=== PATIENT | female | born 1950 | race Two or more races ===

== ENCOUNTER 2017-04-21 11:50 | Emergency (ER) | payer MEDICARE ==
[2017-04-21 12:39] LABS: ABSOLUTE BASOPHILS # (AUTO) 0.1 10^3/uL (0.0-0.2); ABSOLUTE EOSINOPHILS # (AUTO) 0.2 10^3/uL (0.0-0.6); ABSOLUTE LYMPHOCYTES (AUTO) 2.2 10^3/uL (0.5-4.7); ABSOLUTE MONOCYTES (AUTO) 0.5 10^3/uL (0.1-1.4); ABSOLUTE NEUT (AUTO) 3.6 10^3/uL (1.7-8.2); BASOPHILS % (AUTO) 0.9 % (0-2); EOSINOPHILS % (AUTO) 2.4 % (0-6); HEMATOCRIT 35.3 % (36.0-47.0); HEMOGLOBIN 11.7 g/dL (12.0-15.5); HGB HCT DIFFERENCE -0.2; LYMPHOCYTES % (AUTO) 34.1 % (13-45); MEAN CORPUSCULAR HEMOGLOBIN 27.8 pg (27.0-33.4); MEAN CORPUSCULAR HGB CONC 33.2 g/dL (32.0-36.0); MEAN CORPUSCULAR VOLUME 84 fl (80-97); MONOCYTES % (AUTO) 7.8 % (3-13); RED BLOOD COUNT 4.22 10^6/uL (3.72-5.28); RED CELL DISTRIBUTION WIDTH 13.9 % (11.5-14.0); SEGMENTED NEUTROPHILS % (AUTO) 54.8 % (42-78); WHITE BLOOD COUNT 6.5 10^3/uL (4.0-10.5)
--- NOTE | 2017-04-21 12:40 | RADIOLOGY REPORT (SQ) ---
EXAM DESCRIPTION: CHEST SINGLE VIEW COMPLETED DATE/TIME: 04/21/2017 12:28 pm REASON FOR STUDY: cp COMPARISON: None. EXAM PARAMETERS: NUMBER OF VIEWS: One view. TECHNIQUE: Single frontal radiographic view of the chest acquired. RADIATION DOSE: NA LIMITATIONS: None. FINDINGS: LUNGS AND PLEURA: No opacities, masses or pneumothorax. No pleural effusion. MEDIASTINUM AND HILAR STRUCTURES: No masses. Contour normal. HEART AND VASCULAR STRUCTURES: Heart normal in size. Normal vasculature. BONES: No acute findings. HARDWARE: None in the chest. OTHER: No other significant finding. IMPRESSION: NO ACUTE RADIOGRAPHIC FINDING IN THE CHEST. TECHNICAL DOCUMENTATION: JOB ID: [id number]
[2017-04-21 12:55] LABS: ALANINE AMINOTRANSFERASE 44 U/L (9-52); ALBUMIN 3.9 g/dL (3.5-5.0); ALKALINE PHOSPHATASE 108 U/L (38-126); ANION GAP 9 (5-19); ASPARTATE AMINO TRANSFERASE 28 U/L (14-36); BILIRUBIN,DIRECT 0.3 mg/dL (0.0-0.4); BILIRUBIN,TOTAL 0.5 mg/dL (0.2-1.3); BLOOD UREA NITROGEN 13 mg/dL (7-20); CALCIUM 10.3 mg/dL (8.4-10.2); CARBON DIOXIDE 27 mmol/L (22-30); CHLORIDE 106 mmol/L (98-107); CREATINE KINASE 109 U/L (30-135); CREATININE RESULT 0.88 mg/dL (0.52-1.25); GLUCOSE 90 mg/dL (75-110); POTASSIUM 4.7 mmol/L (3.6-5.0); TOTAL PROTEIN 6.4 g/dL (6.3-8.2)
[2017-04-21 13:07] LABS: CREATINE KINASE MB 1.36 ng/mL (<4.55)
[2017-04-21 13:08] LABS: TROPONIN I < 0.012 ng/mL
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
[2017-04-21] MEDS ORDERED: LANSOPRAZOLE 30 MG TAB.RAP.DR PO ONE (14:21)
[2017-04-21] MEDS ORDERED: AMLODIPINE BESYLATE 10 MG TABLET PO ONE (14:22)
--- NOTE | 2017-04-21 14:56 | ER Document Report ---
Doctor's Note Notes: 04/21/17 14:54 I was seen in consult with this 66-year-old female with past medical history as recorded who has not taken her medications recently after moving here who has had some intermittent nonradiating substernal discomfort. Patient runs 3 miles daily with no exertional pain. Denies any nausea, vomiting, calf pain or leg swelling, shortness of breath. Labs and x-ray as recorded. Heart scores a 2. We will perform a repeat troponin at the three-hour indigo. We have called and spoken directly in person to Dr. Christensen. He has stated that if the repeat troponin is unremarkable, patient can follow-up in the office after restarting her blood pressure medications on Sunday. Chest x-ray shows normal heart, normal mediastinum, no fractures, normal lung vidales, no pneumothorax.
--- NOTE | 2017-04-21 16:57 | RADIOLOGY REPORT (SQ) ---
EXAM DESCRIPTION: CT HEAD WITHOUT COMPLETED DATE/TIME: 04/21/2017 4:33 pm REASON FOR STUDY: headache COMPARISON: None. TECHNIQUE: Axial images acquired through the brain without intravenous contrast. Images reviewed wi th bone, brain and subdural windows. Images stored on PACS. All CT scanners at this facility use dose modulation, iterative reconstruction, and/or weight based d osing when appropriate to reduce radiation dose to as low as reasonably achievable (ALARA). [facility]: Dose Right [facility]: CareDose [facility]: Dose Right [facility]: Teradose 4D [facility]: Code71 RADIATION DOSE: Up-to-date CT equipment and radiation dose reduction techniques were employed. CTDIv ol: 64.6 mGy. DLP: 1163 mGy-cm. mGy. LIMITATIONS: None. FINDINGS: VENTRICLES: Normal size and contour. CEREBRUM: No masses. No hemorrhage. No midline shift. No evidence for acute infarction. Normal gra y/white matter differentiation. No areas of low density in the white matter. CEREBELLUM: No masses. No hemorrhage. No alteration of density. No evidence for acute infarction. EXTRAAXIAL SPACES: No fluid collections. No masses. ORBITS AND GLOBE: No intra- or extraconal masses. Normal contour of globe without masses. CALVARIUM: No fracture. PARANASAL SINUSES: No fluid or mucosal thickening. SOFT TISSUES: No mass or hematoma. OTHER: No other significant finding. IMPRESSION: NORMAL BRAIN CT WITHOUT CONTRAST. EVIDENCE OF ACUTE STROKE: NO. COMMENT: Quality ID # [id number]: Final reports with documentation of one or more dose reduction techniques (e.g., Automated exposure control, adjustment of the mA and/or kV according to patient size, use of iterative reconstruction technique) TECHNICAL DOCUMENTATION: JOB ID: [id number] [employer]- All Rights Reserved
--- NOTE | 2017-04-21 17:26 | EKG REPORT ---
SEVERITY:- BORDERLINE ECG - SINUS RHYTHM LVH BY VOLTAGE : Confirmed by: Moncho Gallardo MD 21-Apr-2017 17:25:37
[2017-04-21 17:51] VITALS: BP 140/77
== END 2017-04-21 17:58 | disposition home or self-care (01) ==
LOC: ER 11:50
DX: K21.9 Gastro-esophageal reflux disease without esophagitis (principal); T47.1X6A Underdosing of other antacids and anti-gastric-secretion drugs, initial encounter; I10 Essential (primary) hypertension; T46.1X6A Underdosing of calcium-channel blockers, initial encounter; T46.5X6A Underdosing of other antihypertensive drugs, initial encounter; Z91.128 Patient's intentional underdosing of medication regimen for other reason; Z91.14 Patient's other noncompliance with medication regimen; R51 Headache; R07.89 Other chest pain; Z98.84 Bariatric surgery status; H53.8 Other visual disturbances; Z94.7 Corneal transplant status; Z87.891 Personal history of nicotine dependence
CPT/HCPCS: 93005; 99285; 36415; 82553; 82550; 85025; 80053; 84484; 71010; 70450; 93010; A9270 ×2

== ENCOUNTER → 2017-09-25 | Outpatient (CLI) | payer MEDICARE | LOC: WI 08:30 | PROVIDERS: ATTEND Internal Medicine Geriatric Medicine | DX: Z12.31 Encounter for screening mammogram for malignant neoplasm of breast (principal) | CPT/HCPCS: 77063; 77067 ==

== ENCOUNTER → 2018-12-19 | Outpatient (CLI) | payer MEDICARE, OTHER ==
--- NOTE | 2018-12-19 14:21 | DRAGON STRESS TEST REPORT ---
Exercise EKG treadmill stress test. Data procedure: December 19, 2018 Indication: Chest pain. Coronary risk factors: Family history of CAD, hypertension. Significant physical findings prior to stress testing show a blood pressure of 144/88, and a heart rate of 66 beats per minute. Brief exam revealed no contraindication for patient proceeding with treadmill stress test. Resting 12-lead EKG: Sinus rhythm, no acute ST-T wave changes noted. Procedure: The patient was excised on a standard Arnie protocol. The patient walked a total of 7 minutes and 59 seconds on this protocol and reached a peak heart rate of 137 beats per minute, which is 89 percent of maximum predicted heart rate for age. Peak blood pressure noted during the exercise was 145/71. This is at a workload of 10.10 METS. The test was stopped because of dyspnea and fatigue. The patient described no symptoms of chest pain/discomfort. Exercise EKG's show: Significant baseline artifact during the stress test. At the immediate recovery, no significant ST segment changes were noted.. Arrhythmias seen: None noted The heart rate response was adequate. There was abnormal increase in systolic blood pressure noted in recovery but this could be related to technical difficulties in obtaining blood pressure during exercise. Summary of findings and interpretation: 1. No chest pain or chest discomfort symptoms reproduced. 2. No significant EKG evidence of ischemia in the form of ST segment depression especially in immediate recovery EKGs. EKGs during exercise showed significant baseline artifact therefore cannot accurately rule out any ST segment changes during exercise. 3. Abnormal increase in blood pressure in recovery, possibly related to technical reason but cannot rule out underlying CAD. 4. No arrhythmias seen. 5. Good exercise tolerance, good aerobic capacity. 6. Further evaluation may be indicated based on patient's symptoms. May consider stress echo/nuclear stress test if clinically indicated. Recommendations: Aggressive risk factor modification, and treatment of underlying co-morbidities. Pro Dickerson M.D., [employer] Worker production team member, Board certified in cardiovascular diseases, Nuclear cardiology, Echocardiography [facility]
== END ==
LOC: SP 08:44
PROVIDERS: ATTEND Internal Medicine Geriatric Medicine
DX: R07.89 Other chest pain (principal); I10 Essential (primary) hypertension; Z82.49 Family history of ischemic heart disease and other diseases of the circulatory system
CPT/HCPCS: 93017

== ENCOUNTER 2019-02-19 15:31 | Emergency (ER) | payer MEDICARE, OTHER ==
[2019-02-19] MEDS ORDERED: LIDOCAINE 2% VISCOUS SOLN 20 ML UDCUP PO ONE (16:11)
[2019-02-19] MEDS ORDERED: METOCLOPRAMIDE HCL ORAL SOLN 10 MG/10 ML UDCUP PO ONE (16:11)
[2019-02-19] MEDS ORDERED: ONDANSETRON HCL INJ/PF 4 MG/2 ML SDV IV ONE (16:11)
[2019-02-19] MEDS ORDERED: FAMOTIDINE INJ/PF 20 MG/2 ML SDV IV ONE (16:11)
[2019-02-19] MEDS ORDERED: MAG HYDROX/AL HYDROX/SIMETH SUSP 30 ML UDCUP PO ONE (16:11)
--- NOTE | 2019-02-19 16:13 | ER Document Report ---
ED Medical Screen (RME) - General Chief Complaint: Chest Pain Stated Complaint: CHEST PAIN Time Seen by Provider: 02/19/19 16:06 Primary Care Provider: TIANA ROCK MD [Primary Care Provider] - Follow up as needed Notes: Patient is a 68-year-old female with a history of hypertension who presents to the emergency department with a chief complaint of midsternal chest pain that developed around 11 AM this morning. Patient states she had just finished cooking her grandson lunch when the pain started. Patient reports that it feels like a pressure and burning type feeling. Patient reports increase in belching and acid reflux. Patient does report a history of acid reflux but is not currently taking any medication. Patient reports nausea without vomiting. Patient reports shortness of breath. TRAVEL OUTSIDE OF THE [place] IN LAST 30 DAYS: No - Related Data Allergies/Adverse Reactions: No Known Allergies Allergy (Verified 02/19/19 15:31) Past Medical History - Social History Frequency of alcohol use: None Drug Abuse: None - Past Medical History Cardiac Medical History: Reports: Hx Hypertension Renal/ Medical History: Denies: Hx Peritoneal Dialysis GI Medical History: Reports: Hx Gastroesophageal Reflux Disease, Hx Colonoscopy, Hx Endoscopy Past Surgical History: Reports: Hx Gastric Bypass Surgery - Immunizations Hx Diphtheria, Pertussis, Tetanus Vaccination: Yes Physical Exam - Vital signs Vitals: Temp Pulse Resp BP Pulse Ox 98.2 F 85 20 148/76 H 99 02/19/19 15:43 02/19/19 15:43 02/19/19 15:43 02/19/19 15:43 02/19/19 15:43 - Respiratory Respiratory status: No respiratory distress Chest status: Nontender Breath sounds: Normal Chest palpation: Normal - Abdominal Inspection: Normal Distension: Other Bowel sounds: Normal Tenderness: Tender - Epigastric tenderness Course - Re-evaluation Re-evalutation: 02/19/19 16:13 I have greeted and performed a rapid initial assessment of this patient. A comprehensive ED assessment and evaluation of the patient, analysis of test results and completion of the medical decision making process will be conducted by additional ED providers. - Vital Signs Vital signs: Temp Pulse Resp BP Pulse Ox 98.2 F 85 20 148/76 H 99 02/19/19 15:43 02/19/19 15:43 02/19/19 15:43 02/19/19 15:43 02/19/19 15:43 Doctor's Discharge - Discharge Referrals: TIANA ROCK MD [Primary Care Provider] - Follow up as needed
[2019-02-19 16:42] LABS: ABSOLUTE LYMPHOCYTES (AUTO) 0.4 10^3/uL (0.5-4.7); TOTAL CELLS COUNTED % (AUTO) 100 %
[2019-02-19 16:46] LABS: ABSOLUTE NEUT (AUTO) 5.5 10^3/uL (1.7-8.2); BASOPHILS % (AUTO) 0.1 % (0-2); EOSINOPHILS % (AUTO) 0.4 % (0-6); HEMATOCRIT 33.5 % (36.0-47.0); HEMOGLOBIN 10.9 g/dL (12.0-15.5); LYMPHOCYTES % (AUTO) 6.6 % (13-45); MEAN CORPUSCULAR HEMOGLOBIN 26.1 pg (27.0-33.4); MEAN CORPUSCULAR HGB CONC 32.5 g/dL (32.0-36.0); MEAN CORPUSCULAR VOLUME 80 fl (80-97); MONOCYTES % (AUTO) 0.7 % (3-13); PLATELET COUNT 321 10^3/uL (150-450); RED BLOOD COUNT 4.17 10^6/uL (3.72-5.28); SEGMENTED NEUTROPHILS % (AUTO) 92.2 % (42-78)
[2019-02-19 16:59] LABS: ALBUMIN 4.2 g/dL (3.5-5.0); ALKALINE PHOSPHATASE 165 U/L (38-126); ANION GAP 7 (5-19); ASPARTATE AMINO TRANSFERASE 675 U/L (14-36); BILIRUBIN,TOTAL 1.3 mg/dL (0.2-1.3); BLOOD UREA NITROGEN 15 mg/dL (7-20); CALCIUM 9.7 mg/dL (8.4-10.2); CARBON DIOXIDE 30 mmol/L (22-30); CHLORIDE 101 mmol/L (98-107); GLUCOSE 135 mg/dL (75-110); POTASSIUM 3.5 mmol/L (3.6-5.0); TOTAL PROTEIN 6.9 g/dL (6.3-8.2)
--- NOTE | 2019-02-19 17:08 | RADIOLOGY REPORT (SQ) ---
EXAM DESCRIPTION: CHEST 2 VIEWS COMPLETED DATE/TIME: 02/19/2019 4:57 pm REASON FOR STUDY: chest pain COMPARISON: 04/21/2017 EXAM PARAMETERS: NUMBER OF VIEWS: two views TECHNIQUE: Digital Frontal and Lateral radiographic views of the chest acquired. RADIATION DOSE: NA LIMITATIONS: none FINDINGS: LUNGS AND PLEURA: No opacities, masses or pneumothorax. No pleural effusion. MEDIASTINUM AND HILAR STRUCTURES: No masses or contour abnormalities. HEART AND VASCULAR STRUCTURES: Heart normal size. No evidence for failure. BONES: The osseous structures are stable in appearance. HARDWARE: None in the chest. OTHER: No other significant finding. IMPRESSION: 1. NO ACUTE RADIOGRAPHIC FINDING IN THE CHEST. TECHNICAL DOCUMENTATION: JOB ID: [id number] [employer]- All Rights Reserved Reading location - IP/workstation name: [email or web address]
[2019-02-19] MEDS ORDERED: SUCRALFATE 1 GM TABLET PO ONE (19:47)
[2019-02-19] MEDS ORDERED: PANTOPRAZOLE SODIUM 40 MG VIAL IV ONE (19:47)
--- NOTE | 2019-02-19 21:37 | ER Document Report ---
Entered by MAGGIE TROY SCRIBE 02/[birth year]/191946 Acting as scribe for:RAVEN ONOFRE DO ED General - General Chief Complaint: Chest Pain Stated Complaint: CHEST PAIN Time Seen by Provider: 02/19/19 16:06 Primary Care Provider: TIANA ROCK MD [Primary Care Provider] - Follow up tomorrow Information source: Patient Notes: 68 year old female that presents to the emergency department today with complaints of chest pain which began this morning. Patient states she has had pain similar to this in the past which has always responded to antacids. Patie nt states she has not taken any antacids for several months and did not try any prior to arrival tonight. Patient states the pain started all of a sudden and she describes it as a "little pressure". Patient states she had a bowel movement here and "released a lot of gas" which she states seemed to ease her pain. Patient has had nausea but denies any vomiting, diarrhea, fevers, chills, or abdominal pain. Patient had a negative stress test within the last few months. TRAVEL OUTSIDE OF THE [place] IN LAST 30 DAYS: No - Related Data Allergies/Adverse Reactions: No Known Allergies Allergy (Verified 02/19/19 15:31) Past Medical History - General Information source: Patient, [facility] - Social History Smoking Status: Never Smoker Cigarette use (# per day): No Frequency of alcohol use: history of alcohol abuse, current status unknown Drug Abuse: None Lives with: Family Family History: Reviewed & Not Pertinent, Other - Alcoholism. Valvular heart disease Patient has suicidal ideation: No Patient has homicidal ideation: No - Past Medical History Cardiac Medical History: Reports: Hx Hypertension GI Medical History: Reports: Hx Gastroesophageal Reflux Disease, Hx Colonoscopy, Hx Endoscopy Past Surgical History: Reports: Hx Gastric Bypass Surgery - Immunizations Hx Diphtheria, Pertussis, Tetanus Vaccination: Yes Review of Systems - Review of Systems Constitutional: denies: Chills, Fever EENT: No symptoms reported Cardiovascular: See HPI, Chest pain Respiratory: No symptoms reported Gastrointestinal: See HPI, Nausea. denies: Abdominal pain, Diarrhea, Vomiting Genitourinary: No symptoms reported Female Genitourinary: No symptoms reported Musculoskeletal: No symptoms reported Skin: No symptoms reported Hematologic/Lymphatic: No symptoms reported Neurological/Psychological: No symptoms reported -: Yes All other systems reviewed and negative Physical Exam - Vital signs Vitals: Temp Pulse Resp BP Pulse Ox 98.2 F 85 20 148/76 H 99 02/19/19 15:43 02/19/19 15:43 02/19/19 15:43 02/19/19 15:43 02/19/19 15:43 Interpretation: Normal - General General appearance: Appears well, Alert - HEENT Head: Normocephalic, Atraumatic Eyes: Normal Pupils: PERRL - Respiratory Respiratory status: No respiratory distress Chest status: Nontender Breath sounds: Normal Chest palpation: Normal - Cardiovascular Rhythm: Regular Heart sounds: Normal auscultation Murmur: No - Abdominal Inspection: Normal Distension: No distension Bowel sounds: Normal Tenderness: Nontender Organomegaly: No organomegaly - Back Back: Normal, Nontender - Extremities General upper extremity: Normal inspection, Nontender, Normal color, Normal ROM, Normal temperature General lower extremity: Normal inspection, Nontender, Normal color, Normal ROM, Normal temperature, Normal weight bearing. No: Eula's sign - Neurological Neuro grossly intact: Yes Cognition: Normal Orientation: AAOx4 Samara Coma Scale Eye Opening: Spontaneous [place] Coma Scale Verbal: Oriented Samara Coma Scale Motor: Obeys Commands [place] Coma Scale Total: 15 Speech: Normal Motor strength normal: LUE, RUE, LLE, RLE Sensory: Normal - Psychological Associated symptoms: Normal affect, Normal mood - Skin Skin Temperature: Warm Skin Moisture: Dry Skin Color: Normal Course - Re-evaluation Re-evalutation: 02/19/19 21:35 Patient is a 68-year-old female who comes in with some chest pain after eating peppers and onions. Patient had chest pain and told her primary care doctor about her back in December. States that she had a normal outpatient stress test at that time. Chest pain improved after medications here. Patient denies any drinking or smoking although blood work is concerning for possible alcohol abuse. Regardless, patient has no further chest pain. Troponin negative x2. No acute findings on EKG. Heart score low risk and Wells score low. Patient will be discharged home and is to follow-up with her doctor. Will be discharged home with omeprazole. Stable for discharge. Agrees with plan. Return if any worsening or concerning symptoms. - Vital Signs Vital signs: Temp Pulse Resp BP Pulse Ox 98.4 F 85 20 105/56 L 96 02/19/19 19:35 02/19/19 15:43 02/19/19 20:31 02/19/19 20:31 02/19/19 20:31 - Laboratory Result Diagrams: 02/19/19 16:20 02/19/19 16:20 Laboratory results interpreted by me: 02/19/19 02/19/19 16:20 16:20 Hgb 10.9 L Hct 33.5 L MCH 26.1 L Seg Neutrophils % 92.2 H Lymphocytes % 6.6 L Monocytes % 0.7 L Absolute Lymphocytes 0.4 L Absolute Monocytes 0.0 L Potassium 3.5 L Glucose 135 H Direct Bilirubin 1.0 H AST 675 H Alkaline Phosphatase 165 H Lipase 368.1 H - Diagnostic Test Radiology reviewed: Reports reviewed - EKG Interpretation by Me EKG shows normal: Sinus rhythm Rate: Normal Rhythm: NSR Discharge - Discharge Clinical Impression: Atypical chest pain GERD (gastroesophageal reflux disease) Qualifiers: Esophagitis presence: esophagitis presence not specified Qualified Code(s): K21.9 - Gastro-esophageal reflux disease without esophagitis Condition: Stable Disposition: HOME, SELF-CARE Instructions: Chest Pain of Unclear Cause ([facility]), Reflux Disease (GERD) ([facility]) Prescriptions: Omeprazole 20 mg PO DAILY #30 tab.rap.dr Referrals: TIANA ROCK MD [Primary Care Provider] - Follow up tomorrow Scribe Attestation: 02/19/19 21:37 I personally performed the services described in the documentation, reviewed and edited the documentation which was dictated to the scribe in my presence, and it accurately records my words and actions. I personally performed the services described in the documentation, reviewed and edited the documentation which was dictated to the scribe in my presence, and it accurately records my words and actions.
[2019-02-19 22:00] VITALS: BP 109/48
--- NOTE | 2019-02-20 11:23 | EKG REPORT ---
SEVERITY:- NORMAL ECG - SINUS RHYTHM : Confirmed by: Pro Dickerson 20-Feb-2019 11:22:27
== END 2019-02-19 21:15 | disposition home or self-care (01) ==
LOC: ER 15:31
DX: R07.89 Other chest pain (principal); K21.9 Gastro-esophageal reflux disease without esophagitis; R11.0 Nausea; I10 Essential (primary) hypertension
CPT/HCPCS: 93005; 99285; 96374; 96375; 36415; 83690; 85025; 80053; 84484; 71046; 93010; J3490; A9270 ×2; C9113; J2405; S0028; S0164